=== PATIENT | female | born 1985 | race Caucasian/White ===

== ENCOUNTER 2021-04-24 21:59 | Emergency (ER) | payer SELFPAY ==
[~2021-04-24] VITALS: Ht 167.6 cm; Wt 102.1 kg
[2021-04-25] MEDS ORDERED: ZOFRAN4 MG PO (01:31)
== END 2021-04-25 02:07 | disposition home or self-care (01) ==
LOC: ED 21:59
DX: K52.9 Noninfective gastroenteritis and colitis, unspecified (principal); R11.2 Nausea with vomiting, unspecified; Z88.6 Allergy status to analgesic agent